=== PATIENT | female | born 1980 | race Caucasian/White ===

== ENCOUNTER 2017-09-08 22:23 | Observation (INO) ==
[2017-09-08] MEDS ORDERED: Ipratropium/Albuterol Neb 3 ML IH ONE (22:32)
[2017-09-08] MEDS ORDERED: methylPREDNISolone 125 MG/2 ML VIAL IVP ONE (22:32)
--- NOTE | 2017-09-08 22:35 | Emergency Department Note ---
Disposition Clinical Impression: HIV (human immunodeficiency virus infection), Acute exacerbation of chronic obstructive airways disease, UTI (urinary tract infection), IDDM (insulin dependent diabetes mellitus) Disposition: Admitted As Inpatient Condition: Fair Time of Disposition: 01:44 ([facility] observation) SOB HPI - General Chief Complaint: ED Shortness of Breath/Dyspnea Stated Complaint: difficulty breathing Time Seen by Provider: 09/08/17 22:30 Source: patient, EMS Mode of arrival: ambulatory Limitations: no limitations Nursing Notes Reviewed: Yes Vital Signs Reviewed: Yes - History of Present Illness 37-year-old female presents wenching increasing shortness breath cough and congestion fevers up to 101 family friend that was staying with them confirmed positive for the flu patient though herself has not had a flu her had the flu about a week ago denies any blurred vision double vision loss vision diarrhea melena hematochezia numbness tingling weakness recent weight gain weight loss Pt Subjective Complaint: shortness of breath, cough Onset (ago): day(s) Context: recent illness Severity: moderate Consistency/Duration: gradually worsening Improves with: nothing Worsens with: nothing Known history of: asthma Associated symptoms: Reports: cough, wheezing, sputum production. Denies: chest pain, pain with inspiration, fever, orthopnea, lower extremity pain, polyuria, polydipsia, parasthesias, palpitations, hemoptysis, diaphoresis, nausea/vomiting, syncope, abdominal pain, sense of impending doom Treatment prior to arrival: none Cough Description: Involuntary, Productive, Strong, Bronchospastic Cough Frequency: Continuous Sputum production: No Sputum Amount: None - Related Data Home Medications Medication Instructions Recorded Confirmed Levothyroxine [Synthroid] 350 mcg PO QAM 05/27/15 09/08/17 Allergies Allergy/AdvReac Type Severity Reaction Status Date / Time Erythromycin Base Allergy Hives Verified 09/08/17 22:27 ketorolac [From Toradol] Allergy See Verified 09/08/17 22:27 Comments meperidine [From Demerol] Allergy See Verified 09/08/17 22:27 Comments moxifloxacin [From Avelox] Allergy Hives Verified 09/08/17 22:27 vancomycin Allergy Hives Verified 09/08/17 22:27 All systems ED: reviewed and negative except as stated. Review of Systems: As Per HPI Constitutional: Denies: fever, chills, weakness, weight change Eyes: Denies: eye pain, eye discharge ENT ED: Reports: congestion. Denies: ear pain, throat pain Cardiovascular: Denies: chest pain, palpitations Respiratory: Reports: cough, dyspnea, wheezes, sputum production Gastrointestinal: Denies: abdominal pain, nausea, vomiting Genitourinary: Denies: urgency, dysuria, frequency Musculoskeletal: Denies: back pain, neck pain Integumentary: Denies: rash, abrasion, lesions, nipple discharge Neurological: Denies: headache, weakness Psychiatric: Denies: anxiety, depression Endocrine: Denies: fatigue, heat or cold intolerance Hematological/Lymphatic: Denies: easy bleeding Allergic/Immunologic: Denies: facial swelling Past Medical History - Past Medical History Attestation: Yes The following information was validated with the patient. 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 - Social History Smoking Status: Current every day smoker Smokeless Tobacco Status: No Alcohol use: Reports: rarely Drug use: Reports: none Physical Exam - General Limitations: no limitations General appearance: alert, anxious, other (Wheezing bronchospastic cough) - Head Head exam: atraumatic, normocephalic, normal inspection - Eye Eye exam: Present: normal appearance, PERRL, EOMI - ENT ENT exam: normal exam, normal oropharynx, mucous membranes moist, TM's normal bilaterally, normal external ear exam, other - Neck Neck exam: Present: normal inspection, full ROM, trachea midline (Postnasal drip ) - Chest Chest inspection: Present: normal inspection, symmetric chest wall rise - Respiratory Respiratory exam: Present: normal lung sounds bilaterally, wheezes, prolonged expiratory phase - Cardiovascular Cardiovascular exam: Present: regular rate, normal rhythm, normal heart sounds - Abdominal Exam Abdominal exam: Present: soft, Non-Tender, normal bowel sounds. Absent: mass, pulsatile mass - Expanded Upper Extremity Exam Shoulder exam: Present: normal inspection, full ROM Arm exam: Present: normal inspection, full ROM Elbow exam: Present: normal inspection, full ROM Forearm/Wrist exam: Present: normal inspection, full ROM Hand exam: Present: normal inspection, full ROM Vascular exam: Normal: capillary refill, radial pulse - Expanded Lower Extremity Exam Hip/Pelvis exam: Present: normal inspection, full ROM Upper leg exam: Present: normal inspection, full ROM Knee exam: Present: normal inspection, full ROM Lower leg exam: Present: normal inspection, full ROM Ankle exam: Present: normal inspection, full ROM Foot/toe exam: Present: normal inspection, full ROM Neurovascular/Tendon exam: Present: normal capillary refill, normal fine/light touch. Absent: motor deficit, sensory deficit, tendon deficit Gait: observed and normal - Back Exam Back exam: Present: normal inspection, full ROM. Absent: muscle spasm - Neurological Exam Neurological exam: Present: alert, oriented X3, CN II-XII intact, normal gait - Psychiatric Psychiatric exam: Present: normal affect, normal mood - Skin Skin exam: Present: warm, dry, intact, normal color Course Course Narrative: Patient seen and examined given a DuoNeb treatment 2 patient showed little bit of improvement but continued to have a pretty harsh cough and was would have a little desaturation with coughing abscess as result patient will be admitted for observation service of Dr. Bonilla bronchitis dyspnea stable - Reevaluation(s) Reevaluation #1: Noncompliant Vital Signs Temperature 99.2 F 09/08/17 22:28 Pulse Rate 111 09/08/17 22:28 Respiratory Rate 18 09/08/17 22:28 Blood Pressure 140/87 09/08/17 22:28 O2 Sat by Pulse Oximetry 100 09/08/17 22:28 Temperature 99.2 F 09/08/17 22:28 Pulse Rate 110 09/08/17 23:08 Respiratory Rate 16 09/08/17 23:08 Blood Pressure 148/67 09/08/17 23:08 O2 Sat by Pulse Oximetry 100 09/08/17 23:08 Oxygen Delivery Oxygen Delivery Nasal Cannula Shortness of Breath/Dyspnea - Differential Diagnosis Likely: acute exacerbation of chronic obstructive airways disease, pneumonia, asthma with exacerbation - Medical Records Medical records reviewed: Yes I reviewed the patient's medical records. - Lab Data Lab results reviewed: Yes I reviewed the patient's lab results. Result diagrams: 09/08/17 22:45 09/08/17 22:45 Lab Results 09/08/17 09/08/17 09/08/17 Range/Units 22:45 22:45 22:45 WBC 5.7 (4.3-11.1) K/mcL RBC 4.72 (3.82-4.97) M/mcL Hgb 12.0 (11.5-15.4) g/dL Hct 34.7 L (35.3-44.9) % MCV 73.5 L (83.0-100.0) fL MCH 25.4 L (28.0-33.3) pg MCHC 34.6 (31.6-35.5) g/dL RDW 13.6 (11.5-14.5) % Plt Count 144 (140-400) K/mcL MPV 10.2 (9.4-12.4) fL Immature Gran % 0.3 (0-4) % Seg Neutrophils % 77.0 % Lymphocytes % 13.8 % Monocytes % 5.2 % Eosinophils % 3.5 % Basophils % 0.2 % Neutrophils # 4.4 (1.6-8.9) K/mcL Lymphocytes # 0.8 (0.6-4.6) K/mcL Monocytes # 0.3 (0.0-1.3) K/mcL Eosinophils # 0.2 (0.0-0.6) K/mcL Basophils # 0.0 (0.0-0.2) K/mcL PT 11.8 (9.4-12.1) Seconds INR 1.1 APTT 31.9 (26.0-36.0) Seconds Sodium 135 L (136-145) mEq/L Potassium 3.6 (3.5-5.1) mEq/L Chloride 101 (98-107) mEq/L Carbon Dioxide 26 (23-29) mEq/L BUN 7 (6-20) mg/dL Creatinine 0.66 (0.60-1.20) mg/dL Est GFR ( Amer) > 60 (> 60) Est GFR (Non-Af Amer) > 60 (> 60) BUN/Creatinine Ratio 11 (6-26) Glucose 195 H (70-105) mg/dL Calculated Osmolality 283 (280-300) Calcium 8.3 L (8.6-10.3) mg/dL - Radiology Data Radiology results reviewed: Yes I reviewed the patient's radiology results. ITS Impressions Chest X-Ray 09/08/17 22:33 IMPRESSION: Negative portable chest. D/ / Huber Mayer MD / Huber Mayer MD Interpreting Provider: Huber Mayer MD Critical Care Time Critical Care Time: No
[2017-09-08 22:52] LABS: Basophils % 0.2 %; Eosinophils # 0.2 K/mcL (0.0-0.6); Eosinophils % 3.5 %; Hematocrit 34.7 % (35.3-44.9); Immature Granulocytes % 0.3 % (0-4); Lymphocytes # 0.8 K/mcL (0.6-4.6); Lymphocytes % 13.8 %; Mean Corpuscular HGB Conc 34.6 g/dL (31.6-35.5); Mean Corpuscular Hemoglobin 25.4 pg (28.0-33.3); Mean Corpuscular Volume 73.5 fL (83.0-100.0); Mean Platelet Volume 10.2 fL (9.4-12.4); Monocytes # 0.3 K/mcL (0.0-1.3); Monocytes % 5.2 %; Neutrophils # 4.4 K/mcL (1.6-8.9); Platelet Count 144 K/mcL (140-400); Red Blood Count 4.72 M/mcL (3.82-4.97); Red Cell Distribution Width 13.6 % (11.5-14.5)
[2017-09-08 22:58] LABS: INR 1.1; Prothrombin Time 11.8 Seconds (9.4-12.1)
[2017-09-08 23:01] LABS: Activated Partial Thrombo Time 31.9 Seconds (26.0-36.0)
[2017-09-08 23:09] LABS: BUN/Creatinine Ratio 11 (6-26); Blood Urea Nitrogen 7 mg/dL (6-20); Calcium 8.3 mg/dL (8.6-10.3); Carbon Dioxide 26 mEq/L (23-29); Chloride 101 mEq/L (98-107); Glucose 195 mg/dL (70-105); Osmolality,Calculated 283 (280-300); Potassium 3.6 mEq/L (3.5-5.1); Sodium 135 mEq/L (136-145); eGFR For Non-African Americans > 60 (> 60)
[2017-09-09] MEDS ORDERED: Acetaminophen 325 MG TABLET PO ONE (00:35)
[2017-09-09] MEDS ORDERED: *HR* Dextrose 50 % in Water (Syg) 50 ML SYRINGE IVP PRN (03:36)
[2017-09-09] MEDS ORDERED: Naloxone 0.4 MG/ML INJ IVP PRN (03:36)
[2017-09-09] MEDS ORDERED: D5% in Water 1,000 ML IVC PRN (03:36)
[2017-09-09] MEDS ORDERED: Dextrose Gel 15 GM/37.5 ML TUBE PO PRN ×2 (03:36)
[2017-09-09] MEDS ORDERED: Albuterol 2.5 MG/3 ML NEBULIZER IH PRN (03:36)
[2017-09-09] MEDS: 0.9 % Sodium Chloride 1,000 ML IVC SCH ×2 (04:22→10:39)
[2017-09-09] MEDS: Ipratropium/Albuterol Neb 3 ML IH SCH ×3 (06:20→16:34)
[2017-09-09] MEDS: Insulin LISPRO 300 UNITS/3 ML VIAL SQ SCH ×3 (08:30→17:30)
[2017-09-09] MEDS ORDERED: Sulfamethoxazole/Trimeth DS 1 EACH TABLET PO SCH (09:00)
[2017-09-09 15:24] VITALS: BP 116/64
--- NOTE | 2017-09-09 17:58 | Internal Med History&Physical ---
Date of Encounter: 09/09/17 Time of Encounter: 17:25 Assessment and Plan (1) Bronchitis Current visit: Yes Status: Acute Likely viral etiology. Chest x-ray was unremarkable. WBC was normal with minimal left shift. She was started on Augmentin through emergency room. (2) HIV (human immunodeficiency virus infection) Current visit: Yes Status: Chronic (3) RBC microcytosis Current visit: No Status: Acute Will order iron studies. Her PCP can follow up on labs. (4) Viral gastroenteritis Current visit: No Status: Acute Diarrhea resolved. Will not workup further. Internal Medicine - H&P: HPI Chief complaint: Cough and dyspnea Admitted From: Emergency Dept Plans for Post Hospital Care: Home History of present illness: Ms. Jalloh is a 37 year old female who came to emergency room stating she had onset of nonproductive cough September 07. She felt she was running a fever and had dyspnea. She developed diarrhea the following day. There was no vomiting. She came to emergency room and was evaluated and admitted to [facility] floor for ongoing care needs. She states she feels improved at the present time. She has had no further diarrhea. She reports her had recent bronchitis symptoms. Her respiratory history is significant for having smoked since age 35. She denies chronic lung disease. Past Med Surg Social Fam HX - Past Medical History Medical history: arthritis, cancer, diabetes, fibromyalgia, HIV/AIDS, hyperlipidemia, thyroid disease Psychiatric history: no psych history - Past Surgical History Surgical History: cholecystectomy, thyroidectomy - Social History Smoking Status: Current every day smoker Smokeless Tobacco Status: No Alcohol use: rarely Drug use: none - Family History Father Hx Family Cardiac Disorders: Yes Hx Family Endocrine Disorder: Yes Internal Medicine - H&P: Meds Levothyroxine [Synthroid] 350 mcg PO QAM 05/27/15 [History] 3 Allergy/AdvReac Type Severity Reaction Status Date / Time Erythromycin Base Allergy Hives Verified 09/08/17 22:27 ketorolac [From Toradol] Allergy See Verified 09/08/17 22:27 Comments meperidine [From Demerol] Allergy See Verified 09/08/17 22:27 Comments moxifloxacin [From Avelox] Allergy Hives Verified 09/08/17 22:27 vancomycin Allergy Hives Verified 09/08/17 22:27 All Systems PM: A 10-system review of systems was performed and is negative for pertinent findings except as documented above in the HPI. Review of systems: General: She states her weight has decreased approximately 70 pounds in the past year, intentionally Cardiovascular: She denies hypertension OR heart failure angina DVT or pulmonary embolus Respiratory: As per history of present illness GI: She has been diagnosed with NAFLD. She has had cholecystectomy. She reports occasional solid food dysphagia. She denies disorders of her exocrine pancreas or liver otherwise : She has had hematuria with UTIs in the past. She is still having some occasional dysuria. 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 She denies large distribution strokes or seizures. She has been diagnosed with DPN. Endocrine: She was diagnosed with DM 2 in 2009. She states a physician in [place] took her off her Lantus but did not give her replacement medications May 2017. She has hypothyroidism secondary to total thyroidectomy for thyroid cancer. She is uncertain if she has hyperlipidemia Hematology/oncology: She has chronic microcytosis. She was told in [place] she had an ovary "mass" on CT scan May 2017. No intervention was done. Psychiatric: She denies anxiety depression or other mental health issues Muscular skeletal: She claims she has been diagnosed with rheumatoid arthritis and fibromyalgia. ID: She reports a diagnosis of HIV. She states she has not taken her prescribed HIV medications for approximately 6 months. - Constitutional Vitals: Temp Pulse Resp BP Pulse Ox 97.5 F L 79 16 116/64 98 09/09/17 15:22 09/09/17 15:22 09/09/17 16:38 09/09/17 15:22 09/09/17 16:38 Exam: Gen.: She is a well-developed obese female resting in bed who appears in no acute distress. HEENT: Head is atraumatic and normocephalic. Eyes: EOMI. There is no scleral icterus. Mouth: Mucosa is moist. Neck: Supple and nontender. There is no thyromegaly or adenopathy noted. Heart: Regular without murmurs gallops or ectopics Lungs: No wheezes or crackles are heard. Abdomen: Soft and nontender. No masses or guarding noted. Extremities: There is no cyanosis edema or clubbing noted. Dorsalis pedis and posttibial pulses are trace to 1+ palpable bilaterally. Neurologic: Mental status: She is talkative and a good historian. Cranial nerves: Smile is symmetric. Forehead wrinkles bilaterally. Tongue protrudes midline. EOMI. Motor: There is no pronator drift. Cerebellar: Finger to nose is intact bilaterally. Skin: Dry. She has multiple healing shallow ulcerative areas on her upper back and torso, arms, and legs which she reports are excoriations from bed bug infestation. Internal Med - H&P Results - Labs CBC & Chem 7: 09/08/17 22:45 09/08/17 22:45
--- NOTE | 2017-09-09 18:18 | Discharge Summary ---
Date of Encounter: 09/09/17 Time of Encounter: 17:25 - Discharge Diagnosis (1) Bronchitis Priority: Primary Status: Acute (2) HIV (human immunodeficiency virus infection) Priority: Secondary Status: Chronic (3) RBC microcytosis Priority: Secondary Status: Chronic (4) Viral gastroenteritis Priority: Secondary Status: Resolved - Discharge Medications Prescriptions: Glimepiride [Amaryl] 1 mg PO 0800 #15 tablet Home Medications: Levothyroxine [Synthroid] 350 mcg PO QAM 05/27/15 [History] Glimepiride [Amaryl] 1 mg PO 0800 #15 tablet 09/09/17 [Rx] Allergies/Adverse Reactions: 3 Allergy/AdvReac Type Severity Reaction Status Date / Time Erythromycin Base Allergy Hives Verified 09/08/17 22:27 ketorolac [From Toradol] Allergy See Verified 09/08/17 22:27 Comments meperidine [From Demerol] Allergy See Verified 09/08/17 22:27 Comments moxifloxacin [From Avelox] Allergy Hives Verified 09/08/17 22:27 vancomycin Allergy Hives Verified 09/08/17 22:27 Date of admission: 09/09/17 02:03 Primary care physician: Jose Moody MD - Patient Status Disposition: Home, Self-Care Condition: Fair Functional capacity at discharge: independent ambulation Overall status at discharge: patient is progressing back to baseline - Discharge Instructions Follow Up With: Jose Moody MD [Primary Care Provider] - 1 week - Diet and Activity Activity: resume usual activities as tolerated Diet: diabetic diet Hospital course: Ms. Jalloh is a 37 year old female who came to emergency room stating she had onset of nonproductive cough September 07. She felt she was running a fever and had dyspnea. She developed diarrhea the following day. There was no vomiting. She came to emergency room and was evaluated and admitted to [facility] floor for ongoing care needs. Initial orders were written by the emergency room physician. I saw her on September 09 and performed the history physical and discharge. By the time I saw her she stated she felt improved. She denied any diarrhea since the previous day. She had no significant abdominal pain and states she had less dyspnea. She felt stable for discharge home which I felt was reasonable. Microcytosis workup [ferritin and iron profile] was drawn prior to discharge. Dr. Moody can follow-up on these results. Hemoglobin A1c was also ordered. I started her on Amaryl 1 mg daily. She will follow with her PCP Dr. Moody within 1 week. He will monitor her HIV status. - Time Spent with Patient Total time spent providing and/or coordinating discharge services: - Constitutional Vitals: Temp Pulse Resp BP Pulse Ox 97.5 F L 79 16 116/64 98 09/09/17 15:22 09/09/17 15:22 09/09/17 16:38 09/09/17 15:22 09/09/17 16:38
[2017-09-09 20:01] LABS: Hemoglobin A1C 7.7 %
[2017-09-09 20:42] LABS: Ferritin 109 ng/ml (10-120); Iron < 10 mcg/dL (50-170); Transferrin 195 mg/dL (203-362)
== END 2017-09-09 19:19 | disposition home or self-care (01) ==
LOC: INPPIK 22:23 → EMEROOPIK 22:23 → INPPIK 09-09 02:45
PROVIDERS: ADMIT Internal Medicine; ATTEND Internal Medicine